=== PATIENT | female | born 1940 | race Caucasian/White ===

== ENCOUNTER 2016-07-25 08:14 | Emergency (ER) | payer OTHER ==
[~2016-07-25] VITALS: Ht 152.4 cm; Wt 79.5 kg
[~2016-07-25 08:14] MED LIST: ANTIVERT25 MG PO
[2016-07-25] MEDS ORDERED: LOSARTAN-HCTZ1 EAC1 PO (09:20)
[2016-07-25] MEDS ORDERED: PANTOPRAZOLE SO40 MG PO (09:20)
[2016-07-25] MEDS ORDERED: ATORVASTATIN CA10 MG PO (09:21)
[2016-07-25] MEDS ORDERED: BUPROPION HCL100 MG PO (09:21)
[2016-07-25] MEDS ORDERED: CALCIUM 500 MG1 EACH PO (09:22)
[2016-07-25] MEDS ORDERED: BUSPAR10 MG PO (09:22)
[2016-07-25] MEDS ORDERED: ONE DAILY FOR1 EAC1 PO (09:23)
[2016-07-25] MEDS ORDERED: FISH OIL 1,0001 EAC7 PO (09:23)
[2016-07-25] MEDS ORDERED: GLUCOSAMINE S1000 M2 PO (09:24)
[2016-07-25] MEDS ORDERED: VITAMIN E & D B52 ML TP (09:25)
[2016-07-25] MEDS ORDERED: LO-DOSE ASPIRIN81 M2 PO (09:25)
[2016-07-25] MEDS ORDERED: TYLENOL WITH C1 EACH PO (09:40)
[2016-07-25 09:45] VITALS: BP 145/67
== END 2016-07-25 09:48 | disposition home or self-care (01) ==
LOC: EME 08:14
DX: M25.551 Pain in right hip (principal); M16.0 Bilateral primary osteoarthritis of hip; I10 Essential (primary) hypertension; Z79.82 Long term (current) use of aspirin
CPT/HCPCS: 73502; 99281; 99284